=== PATIENT | male | born 1950 | race Caucasian/White ===

== ENCOUNTER → 2016-10-06 13:46 | Outpatient (CLI) | payer MEDICARE, BC ==
[2013-10-21 10:49] VITALS: BMI 46.0
[~2016-10-06 13:46] MED LIST: AMARYL1 MG PO; B&O SUPP1 SUPP.REC RC; BACTRIM DS TABL1 TAB PO; BENADRYL25 MG PO; CEFTRIAXONE2 G/50 ML IV; CHLORASEPTIC177 ML MM; COLACE100 MG PO; DETROL LA4 MG PO; DEXTROSE 50%/WA50 M2; DULCOLAX10 MG/SUPP RC; GLUCAGEN1 MG/VIAL IM; GLUCAGEN1 MG/VIAL SC; GLUCERNA 1 CAL237 ML; GLUCOPHAGE1000 MG PO; HUMALOG 30100 UNITS/ SC; HYDROCODON-ACE1 EAC7 PO; HYDROCODONE-APA1 TAB PO; LEXAPRO10 MG PO; LOVENOX40 MG/0.4 SQ; MIRALAX17 GM PO; NALOXONE HCL IV; NEURONTIN 300300 MG PO; OYST-CAL-5001 TAB PO; PERCOCET 10/3251 TA1 PO; PROTEIN LIQUID30 ML PO; SALINE FLUSH10 ML IV; SENOKOT-S TABLE1 TAB PO; TYLENOL650 MG PO; VITAMIN D2000 UNIT PO; ZESTRIL40 MG PO; ZOFRAN4 MG PO
== END | disposition home or self-care (01) ==
LOC: D.US 13:30
DX: R60.9 Edema, unspecified (principal)